=== PATIENT | male | born 1950 | race Caucasian/White ===

== ENCOUNTER → 2019-01-27 | Outpatient (CLI) | payer MEDICARE, OTHER | LOC: M.RAD 11:58 | DX: M51.36 Other intervertebral disc degeneration, lumbar region (principal); M16.0 Bilateral primary osteoarthritis of hip ==

== ENCOUNTER → 2019-02-15 | Outpatient (CLI) | payer MEDICARE, OTHER ==
[~2019-02-15] MED LIST: FLEXERIL PO; FLOMAX0.4 MG PO; INDOMETHACIN 5050 M1 PO; LEVAQUIN 750 M750 MG PO; NEURONTIN 300300 M1 PO; NORCO 7.5-3251 EACH PO; OMEPRAZOLE40 MG PO; ZYLOPRIM300 MG PO; [UNRECOGNIZED DRUG - REMARK]
== END ==
LOC: M.PC 05:14
DX: M16.0 Bilateral primary osteoarthritis of hip (principal); M51.36 Other intervertebral disc degeneration, lumbar region; M47.816 Spondylosis without myelopathy or radiculopathy, lumbar region

== ENCOUNTER → 2019-02-18 | Outpatient (CLI) | payer MEDICARE, OTHER | LOC: M.MRI 16:53 | DX: M47.26 Other spondylosis with radiculopathy, lumbar region (principal); G89.29 Other chronic pain ==

== ENCOUNTER → 2019-02-22 | Outpatient (CLI) | payer MEDICARE, OTHER | END | disposition home or self-care (01) | LOC: M.PC 01:38 | DX: M25.552 Pain in left hip (principal); M16.0 Bilateral primary osteoarthritis of hip; Z79.899 Other long term (current) drug therapy; Z79.891 Long term (current) use of opiate analgesic; Z98.890 Other specified postprocedural states ==

== ENCOUNTER 2019-03-08 17:22 | Inpatient (IN) | payer MEDICARE, OTHER ==
[~2019-03-08] VITALS: Ht 188 cm; Wt 95.3 kg
[~2019-03-08 17:22] MED LIST changes: -FLOMAX0.4 MG PO; -LEVAQUIN 750 M750 MG PO; -[UNRECOGNIZED DRUG - REMARK]
[2019-03-08 17:50] VITALS: BP 167/100
[2019-03-08] MEDS ORDERED: [UNRECOGNIZED DRUG - REMARK] (17:56)
[2019-03-08 18:47] LABS: URINE BILIRUBIN NEGATIVE (Negative); URINE BLOOD 1+ (Negative); URINE CLARITY CLEAR; URINE COLOR YELLOW; URINE GLUCOSE-RANDOM NEGATIVE (Negative); URINE KETONES NEGATIVE (Negative); URINE PROTEIN TRACE (Negative); URINE SPECIFIC GRAVITY <= 1.005 (1.005-1.030); URINE UROBILINOGEN 0.2 E.U./dl (0.2-1.0)
[2019-03-08 18:49] LABS: URINE LEUKOCYTES-REFLEX 2+ (Negative); URINE NITRITE-REFLEX POSITIVE (Negative)
[2019-03-08 18:53] LABS: HEMATOCRIT 38.8 % (42.0-52.0); HEMOGLOBIN 13.4 gm/dL (14.0-18.0); MCH 31.9 pg (26.0-34.0); MCHC 34.5 g/dL (28.0-37.0); MCV 92.5 fL (80.0-100.0); MPV 7.4 fl. (7.2-11.1); NUCLEATED RBCS 0 /100WBC; PLATELET COUNT* 251 thou/uL (150-400); RBC 4.19 mil/uL (4.50-6.00); WBC 12.5 thou/uL (4.0-11.0)
[2019-03-08 19:00] LABS: CALCIUM 9.3 mg/dL (8.5-10.1); CREATININE 1.2 mg/dL (0.6-1.3); POTASSIUM 3.7 mmol/L (3.5-5.1)
[2019-03-08 19:03] LABS: BACTERIA-REFLEX >30 Many /HPF (None Seen); CASTS None Seen /LPF (None Seen); MUCUS None Seen strn/LPF (None Seen); SQUAMOUS NONE SEEN /LPF (0-3)
[2019-03-08 19:04] LABS: CRYSTALS None Seen /LPF (None Seen); URINE RBC 0-2 Rare /HPF (0-2); URINE WBC-REFLEX >25 Many /HPF (0-5); WBC CLUMPS Few (None Seen)
[2019-03-08 19:11] LABS: ALBUMIN 3.7 g/dL (3.4-5.0); TOTAL BILIRUBIN 0.6 mg/dL (<0.1-1.0); TOTAL PROTEIN 7.6 g/dL (6.4-8.2)
[2019-03-08 19:22] LABS: ABSOLUTE EOSINOPHILS 0.1 thou/uL (0.0-0.7); ABSOLUTE LYMPHOCYTES 0.9 thou/uL (0.8-5.3); ABSOLUTE MONOCYTES 0.5 thou/uL (0.0-1.2); PLATELET ESTIMATE ADEQUATE
[2019-03-08 19:26] LABS: INFLUENZA A ANTIGEN Negative (Negative); INFLUENZA B ANTIGEN Negative (Negative)
--- NOTE | 2019-03-08 19:57 | NUR ---
ALEJANDRA MATAFIED UPON PT RETURN FROM CT. PT WAS NOT CONNECTED TO MONITOR HE WAS NOT CONNECTED PRIOR TO CT
[2019-03-08 23:46] VITALS: BP 133/72
--- NOTE | 2019-03-09 07:38 | NUR ---
CAIT FROM THE LAB REPORTS THAT THE PATIENT HAS "A POSITIVE BLOOD CULTURE, GRAM NEGATIVE RODS AND IT IS POSITIVE IN THE ANAEROBIC BOTTLE". THIS NURSE NOTIFIED THE FLOOR NURSE, JULIO CESAR COLE DURING REPORT. JULIO CESAR COLE STATED THAT SHE "WOULD NOTIFY THE HOSPITALIST".
[2019-03-09 07:42] VITALS: BP 126/62
[2019-03-09 07:50] VITALS: BP 155/92
--- NOTE | 2019-03-09 09:52 | EKG ---
[place] [address] ELECTROCARDIOGRAM REPORT Name: ALCAZAR,KAREEN CRUZ Room: [address] ADM IN [facility].#: [id number] Admission: 03/08/19 Attend Phys: Erika Gramajo MD Discharge: Date of : 54 Report #: [id number] THIS REPORT FOR: //name// [facility] ED Test Date: 2019-03-08 Test Time: 18:49:27 Pat Name: KAREEN ALCAZAR Department: Room: [facility] Gender: M Waiter/Waitress Bar: EV : 1950 Requested By: William Oliver Order Number: [id number] MD: Bora Stark Measurements Intervals [place] Rate: 111 P: -8 IA: 143 QRS: 6 QRSD: 97 T: 40 QT: 322 QTc: 438 Interpretive Statements Sinus tachycardia No previous ECG available for comparison Electronically Signed On 03-09-2019 9:52:23 CDT by Bora Stark [email or web address] <ELECTRONICALLY SIGNED> By: Bora Stark MD, [facility] 03/09/19 0952 [id number] Bora Stark MD, FACC /EPI
--- NOTE | 2019-03-09 12:07 | NUR ---
PT.RESTING IN BED. ALERT AND ORIENTED. STATE HE LIVES BY HIMSELF. WORKS [employer] ST[employer]. IS INDEPENDENT. ONLY DME IS CPAP. HE IS SEEING IF A FRIEND CAN BRING IT IN FOR HIM. CM WILL FOLLOW FOR ANY DISCHARGE PLANNING NEEDS.
[2019-03-09 16:00] VITALS: BP 142/66
--- NOTE | 2019-03-09 20:03 | NUR ---
PATIENT ARRIVED TO UNIT AT 0800. ADMISSION HISTORY AND ASSESSMENT COMPLETED AND CHARTED. NO COMPLAINTS OF PAIN. VSS ON ROOM AIR, PATIENT FEBRILE ANF GIVEN TYLENOL. PATIENTS IV IN AC OCCLUDED FREQUENTLY WITH BENDING THE ARM, NEW LINE STARTED IN LEFT FOREARM SO THAT PATIENTS FLUIDS WOULD INFUSE WITHOUT INTERRUPTION. PATIENT UP AD SYLVESTER IN THE ROOM. CALL LIGHT WITHIN REACH. HOURLY ROUNDS COMPLETED. NURSING WILL CONTINUE TO MONITOR.
[2019-03-09 20:20] VITALS: BP 138/80
--- NOTE | 2019-03-10 04:54 | NUR ---
ASSUMED CARE OF PT 03/09/19 AT APPROX 1930, PT REMAINED A&OX4 THROUGHOUT SHIFT, PT ON ROOM AIR AND UP AD SYLVESTER, TEMP 98.6 TO 99.3 THIS SHIFT, ASSESSMENTS AND HOURLY ROUNDINGS COMPLETED. WILL CONTINUE TO MONITOR.
[2019-03-10 05:02] LABS: HEMATOCRIT 36.8 % (42.0-52.0); HEMOGLOBIN 12.6 gm/dL (14.0-18.0); MCH 32.1 pg (26.0-34.0); MCHC 34.2 g/dL (28.0-37.0); MCV 93.7 fL (80.0-100.0); MPV 7.4 fl. (7.2-11.1); RBC 3.93 mil/uL (4.50-6.00); RDW-CV 13.4 % (10.5-14.5); WBC 10.1 thou/uL (4.0-11.0)
[2019-03-10 05:24] LABS: ALBUMIN 2.7 g/dL (3.4-5.0); CALCIUM 8.3 mg/dL (8.5-10.1); CREATININE 1.1 mg/dL (0.6-1.3); POTASSIUM 3.4 mmol/L (3.5-5.1); TOTAL BILIRUBIN 0.5 mg/dL (<0.1-1.0); TOTAL PROTEIN 6.4 g/dL (6.4-8.2)
[2019-03-10 07:50] VITALS: BP 130/49
--- NOTE | 2019-03-10 16:14 | NUR ---
ASSUMED CARE OF PATIENT AT APPROX 0730. ALERT AND ORIENTED X4. ASSESSMENT COMPLETED AND CHARTED. VSS ON ROOM AIR. NO COMPLAINTS OF PAIN. PATIENT FEBRILE UPON MORNING ASSESSMENT, GIVEN TYLENOL. FLUIDS AND ANTIBIOTICS INFUSED ORDERED. PATIENT UP AD SYLVESTER. SHOWERED TODAY AND LINENS CHANGED. NO COMPLAINTS OF PAIN THIS SHIFT, "JUST SOME BODY ACHES FROM THE FEVER". PATIENT RESTED IN BED THROUGOUT SHIFT. HOURLY ROUNDS COMPLETED. CALL LIGHT WITHIN REACH. NURSING WILL CONTINUE TO MONITOR.
[2019-03-10 20:14] VITALS: BP 144/78
[2019-03-10 23:45] VITALS: BP 142/89
[2019-03-11 03:43] VITALS: BP 141/81
[2019-03-11 04:06] LABS: ALBUMIN 2.5 g/dL (3.4-5.0); CALCIUM 8.3 mg/dL (8.5-10.1); CREATININE 1.1 mg/dL (0.6-1.3); POTASSIUM 3.6 mmol/L (3.5-5.1); TOTAL BILIRUBIN 0.3 mg/dL (<0.1-1.0); TOTAL PROTEIN 6.4 g/dL (6.4-8.2)
[2019-03-11 04:10] LABS: HEMATOCRIT 35.7 % (42.0-52.0); HEMOGLOBIN 12.1 gm/dL (14.0-18.0); MCH 31.7 pg (26.0-34.0); MCV 93.4 fL (80.0-100.0); MPV 7.9 fl. (7.2-11.1); RBC 3.82 mil/uL (4.50-6.00); RDW-CV 13.3 % (10.5-14.5); WBC 8.3 thou/uL (4.0-11.0)
--- NOTE | 2019-03-11 05:18 | NUR ---
ASSUMED CARE OF PT 03/10/19 AT APPROX 1930, PT REMAINED A&OX4 THROUGHOUT SHIFT, PT UP AD SYLVESTER, ASSESSMENTS AND HOURLY ROUNDINGS COMPLETED. WILL CONTINUE TO MONITOR.
[2019-03-11 07:40] VITALS: BP 146/78
[2019-03-11 16:00] VITALS: BP 138/71
--- NOTE | 2019-03-11 19:02 | NUR ---
ASSUMED CARE OF PATIENT AT APPROX 0730. ALERT AND ORIENTED X4. ASSESSMENT COMPLETED AND CHARTED. VSS ON ROOM AIR. NO COMPLAINTS OF PAIN OR [place]. NO FEVERS OR CHILLS THIS SHIFT. PATIENT UP AD SYLVESTER AND SHOWERED TODAY. REQUESTED TO BE DISCONNECTED FROM FLUIDS SO HE CAN GET UP AND USE THE BATHROOM EASIER. NO OTHER COMPLAINTS THIS SHIFT. HOURLY ROUNDS COMPLETED. CALL LIGHT WITHIN REACH. NURSING WILL CONTINUE TO MONITOR.
[2019-03-11 20:00] VITALS: BP 171/90
[2019-03-12 04:48] LABS: HEMATOCRIT 38.3 % (42.0-52.0); HEMOGLOBIN 13.2 gm/dL (14.0-18.0); MCHC 34.4 g/dL (28.0-37.0); MCV 93.1 fL (80.0-100.0); MPV 7.7 fl. (7.2-11.1); RBC 4.12 mil/uL (4.50-6.00); RDW-CV 13.3 % (10.5-14.5); WBC 6.7 thou/uL (4.0-11.0)
[2019-03-12 04:50] VITALS: BP 151/87
[2019-03-12 04:59] LABS: CALCIUM 8.8 mg/dL (8.5-10.1); POTASSIUM 3.5 mmol/L (3.5-5.1)
--- NOTE | 2019-03-12 07:37 | NUR ---
Alert and oriented x 4. He is up independently in the room. Vitals were stable. He is voiding adequately with no difficulty. He denies pain. He slept well.
[2019-03-12 09:58] VITALS: BP 150/92
[2019-03-12] MEDS ORDERED: FLOMAX0.4 MG PO (13:07)
[2019-03-12] MEDS ORDERED: LEVAQUIN 750 M750 MG PO (13:07)
[2019-03-12 14:15] VITALS: BP 150/92
--- NOTE | 2019-03-12 15:07 | NUR ---
ASSUMED CARE OF PATIENT AT APPROX 0730. ALERT AND ORIENTED X4. ASSESS,EMT CPMPLETED AND CHARTED. VSS ON ROOM AIR. NO COMPLAINTS OF PAIN, FEVER OR CHILLS. PATIENT UP AD SYLVESTER IN THE ROOM. DISCHARGED AT 1500 WITH ALL PERSONAL BELONGINGS, PRESCRIPTION AND DISCHARGE INFORMATION.
== END 2019-03-12 15:00 | disposition home or self-care (01) | DRG 872 ==
LOC: M.ERS 17:22 → M.ORTHSURG 19:37 → M.TBA-ER 19:37 → M.ORTHSURG 03-09 07:56
PROVIDERS: Emergency Medicine Emergency Medical Services; Family Medicine; Physician Assistant; ADMIT Internal Medicine
DX: A41.51 Sepsis due to Escherichia coli [E. coli] (principal); E44.1 Mild protein-calorie malnutrition; N12 Tubulo-interstitial nephritis, not specified as acute or chronic; Z96.649 Presence of unspecified artificial hip joint; M10.9 Gout, unspecified; K21.9 Gastro-esophageal reflux disease without esophagitis; N40.0 Benign prostatic hyperplasia without lower urinary tract symptoms; M19.90 Unspecified osteoarthritis, unspecified site; B96.20 Unspecified Escherichia coli [E. coli] as the cause of diseases classified elsewhere; Z79.899 Other long term (current) drug therapy; Z68.27 Body mass index [BMI] 27.0-27.9, adult

== ENCOUNTER → 2019-03-29 | Outpatient (CLI) | payer MEDICARE, OTHER ==
[~2019-03-29] MED LIST changes: +FLOMAX0.4 MG PO; +LEVAQUIN 750 M750 MG PO; +[UNRECOGNIZED DRUG - REMARK]
== END | disposition home or self-care (01) ==
LOC: M.PC 01:53
DX: M25.552 Pain in left hip (principal); M16.12 Unilateral primary osteoarthritis, left hip; M19.90 Unspecified osteoarthritis, unspecified site; K21.9 Gastro-esophageal reflux disease without esophagitis; M10.9 Gout, unspecified; Z98.890 Other specified postprocedural states; Z79.899 Other long term (current) drug therapy

== ENCOUNTER → 2019-04-14 | Outpatient (CLI) | payer MEDICARE, OTHER | LOC: M.PC 04-12 08:10 | DX: M47.26 Other spondylosis with radiculopathy, lumbar region (principal); M51.16 Intervertebral disc disorders with radiculopathy, lumbar region; M16.0 Bilateral primary osteoarthritis of hip ==